=== PATIENT | male | born 1980 | race Caucasian/White ===

== ENCOUNTER → 2024-10-01 | Outpatient (CLI) | payer BC, SELFPAY ==
--- NOTE | 2024-10-01 09:30 | XR_ITS ---
Examination: Testicular sonography complete Technique: Grayscale sonographic images testes with color flow analysis, assessment arterial inflow venous outflow Doppler spectral analysis Exam date and time: October 01, 2024 0951 hrs. Indications: Right testicular pain beginning 9 months ago Findings: Right testis 4.2 x 2.3 x 3.2 cm Epididymis 16mm 5 mm right epididymal cyst. Arterial flow testicle. Testicular cyst 5 mm no solid testicular mass Minimal hydrocele Mild varicocele Left testis 3.7 x 1.8 x 2.7 cm Epididymis 15 mm Arterial flow testicle. No testicular mass Minimal hydrocele Impression: No testicular torsion or testicular mass Small benign right epididymal cyst Small benign right testicular cyst Mild right varicocele
== END | disposition home or self-care (01) ==
LOC: CDIM 09:35
PROVIDERS: Referring Provider Urology; Visit Provider Urology
DX: L72.0 Epidermal cyst (principal); N50.89 Other specified disorders of the male genital organs; I86.1 Scrotal varices
CPT/HCPCS: 76870

== ENCOUNTER → 2024-10-23 | Outpatient (BNVA) | payer BC, SELFPAY | END | disposition home or self-care (01) | PROVIDERS: PCP Internal Medicine Pulmonary Disease; Referring Provider Internal Medicine Pulmonary Disease; Visit Provider Urology | DX: N40.0 Benign prostatic hyperplasia without lower urinary tract symptoms (principal); N50.3 Cyst of epididymis; E66.9 Obesity, unspecified; Z68.35 Body mass index [BMI] 35.0-35.9, adult | CPT/HCPCS: 81003; 99212; G0463 ==

== ENCOUNTER → 2025-04-23 | Outpatient (BNVA) | payer BC, SELFPAY | END | disposition home or self-care (01) | PROVIDERS: PCP Internal Medicine Pulmonary Disease; Referring Provider Internal Medicine Pulmonary Disease; Visit Provider Urology | DX: N40.0 Benign prostatic hyperplasia without lower urinary tract symptoms (principal); Z87.442 Personal history of urinary calculi; E66.9 Obesity, unspecified; Z68.34 Body mass index [BMI] 34.0-34.9, adult | CPT/HCPCS: 81003; 99212; G0463 ==